=== PATIENT | female | born 1975 | race African-American/Black ===

== ENCOUNTER 2017-03-20 23:54 | Emergency (ER) | payer OTHER ==
[~2017-03-20] VITALS: Ht 175.3 cm; Wt 88.9 kg
[2017-03-21] MEDS ORDERED: KETO10TA2 PO (02:11)
[2017-03-21] MEDS ORDERED: NORFLEX100MG PO (02:11)
== END 2017-03-21 02:23 | disposition home or self-care (01) ==
LOC: ER 23:54
DX: M54.2 Cervicalgia (principal)

== ENCOUNTER → 2017-04-06 | Emergency (ER) | payer OTHER ==
[~2017-04-06] VITALS: Ht 175.3 cm; Wt 76.7 kg
[~2017-04-06] MED LIST: AIRBORNE EFFER1 EACH PO; CYCLOBENZAPRINE10 MG PO; KETO10TA2 PO; NORFLEX100MG PO
== END | disposition home or self-care (01) ==
LOC: ER 01:04 → EDBD 01:06 → ER 01:06
DX: J11.1 Influenza due to unidentified influenza virus with other respiratory manifestations (principal); B34.9 Viral infection, unspecified

== ENCOUNTER 2020-02-28 21:15 | Emergency (ER) | payer OTHER ==
[~2020-02-28] VITALS: Ht 175.3 cm; Wt 96.6 kg
== END 2020-02-28 23:20 | disposition home or self-care (01) ==
LOC: ER 21:15
DX: R13.19 Other dysphagia (principal)

== ENCOUNTER 2021-02-16 14:17 | Emergency (ER) | payer OTHER ==
[~2021-02-16] VITALS: Ht 175.3 cm; Wt 98.9 kg
== END 2021-02-16 19:27 | disposition home or self-care (01) ==
LOC: ER 14:17
DX: J00 Acute nasopharyngitis [common cold] (principal); Z20.822 Contact with and (suspected) exposure to COVID-19

== ENCOUNTER 2021-09-21 23:11 | Emergency (ER) | payer OTHER ==
[~2021-09-21] VITALS: Ht 175.3 cm; Wt 90.7 kg
[2021-09-22] MEDS ORDERED: DOLOGESIC-DF 51 EACH PO (03:42)
[2021-09-22] MEDS ORDERED: PHENAGIL TABLE1 EACH PO (03:42)
== END 2021-09-22 03:58 | disposition home or self-care (01) ==
LOC: ER 23:11
DX: B34.9 Viral infection, unspecified (principal); Z20.822 Contact with and (suspected) exposure to COVID-19

== ENCOUNTER 2022-01-15 17:40 | Emergency (ER) | payer OTHER ==
[~2022-01-15] VITALS: Ht 175.3 cm; Wt 90.7 kg
[~2022-01-15 17:40] MED LIST changes: +DOLOGESIC-DF 51 EACH PO; +PHENAGIL TABLE1 EACH PO
[2022-01-15] MEDS ORDERED: OSEL75CA PO (21:01)
== END 2022-01-15 23:07 | disposition home or self-care (01) ==
LOC: ER 17:40
DX: J10.1 Influenza due to other identified influenza virus with other respiratory manifestations (principal); Z20.822 Contact with and (suspected) exposure to COVID-19

== ENCOUNTER 2022-08-27 20:21 | Emergency (ER) | payer OTHER ==
[~2022-08-27] VITALS: Ht 175.3 cm; Wt 96.2 kg
[~2022-08-27 20:21] MED LIST changes: +OSEL75CA PO
== END 2022-08-27 22:55 | disposition home or self-care (01) ==
LOC: ER 20:21
DX: M54.2 Cervicalgia (principal); M62.830 Muscle spasm of back